=== PATIENT | male | born 1995 | race Native Hawaiian/Other Pacific Islander ===

== ENCOUNTER 2018-08-20 22:41 | Emergency (ER) | payer MEDICAID ==
[~2018-08-20] VITALS: Ht 188 cm; Wt 108.9 kg
[~2018-08-20 22:41] MED LIST: AMOX500 PO; ATOM10 PO; CLON.2 PO; CONCERTA; FAMO20 PO; GUAIFENESIN; HYDMOR4 PO; LEVFLO500 PO; METHYLPHENIDATE; METPHE18ER PO; METPHE27ER PO; MIRT15 PO; MIRT30 PO; OMEP20ER PO; RXHYDMOR2 PO; RXOXYACE PO; SUCR1 PO; TENEX
[2018-08-20] MEDS ORDERED: Bactrim Ds Tab1 EACH PO (23:01)
== END 2018-08-20 23:26 | disposition home or self-care (01) ==
LOC: ER 22:41
DX: L73.9 Follicular disorder, unspecified (principal); F90.9 Attention-deficit hyperactivity disorder, unspecified type
CPT/HCPCS: 99282